=== PATIENT | female | born 1955 | race Caucasian/White ===

== ENCOUNTER → 2017-02-28 | Outpatient (CLI) | payer MEDICARE, MEDICAID | END | disposition home or self-care (01) | LOC: PCVCCLINIC 14:32 | PROVIDERS: ATTEND Internal Medicine Cardiovascular Disease | DX: I25.10 Atherosclerotic heart disease of native coronary artery without angina pectoris (principal); I10 Essential (primary) hypertension; E78.00 Pure hypercholesterolemia, unspecified; K21.9 Gastro-esophageal reflux disease without esophagitis; Z79.899 Other long term (current) drug therapy; Z87.891 Personal history of nicotine dependence | CPT/HCPCS: 93005; G0463 ==

== ENCOUNTER → 2017-08-29 | Outpatient (CLI) | payer MEDICARE, OTHER, MEDICAID ==
[~2017-08-29] MED LIST: AMINOPHYLLINE 250 MG/10 ML VIAL.; REGADENOSON 0.4 MG/5 ML DISP.SYRIN. IV
== END | disposition home or self-care (01) ==
LOC: PCVCIMAG 14:40
DX: I25.10 Atherosclerotic heart disease of native coronary artery without angina pectoris (principal); I10 Essential (primary) hypertension; E78.00 Pure hypercholesterolemia, unspecified; K21.9 Gastro-esophageal reflux disease without esophagitis; I21.9 Acute myocardial infarction, unspecified; Z79.82 Long term (current) use of aspirin; Z79.899 Other long term (current) drug therapy; Z87.891 Personal history of nicotine dependence
CPT/HCPCS: 78452; 93017; A9500; G0463; J0280; J2785

== ENCOUNTER → 2018-02-27 | Outpatient (CLI) | payer MEDICARE, OTHER | END | disposition home or self-care (01) | LOC: PCVCCLINIC 13:00 | PROVIDERS: ATTEND Internal Medicine Cardiovascular Disease | DX: I25.10 Atherosclerotic heart disease of native coronary artery without angina pectoris (principal); I10 Essential (primary) hypertension; E78.00 Pure hypercholesterolemia, unspecified; K21.9 Gastro-esophageal reflux disease without esophagitis; R94.31 Abnormal electrocardiogram [ECG] [EKG]; Z88.8 Allergy status to other drugs, medicaments and biological substances; Z79.82 Long term (current) use of aspirin; Z79.899 Other long term (current) drug therapy | CPT/HCPCS: 93005; G0463 ==

== ENCOUNTER → 2018-08-26 | Outpatient (CLI) | payer MEDICARE, OTHER ==
--- NOTE | 2018-08-26 15:06 | PCVCIMAG ---
APPROVED REPORT Study performed: 08/26/2018 14:10:53 EXAM: Comprehensive 2D, Doppler, and color-flow Echocardiogram Patient Location: Echo lab Status: routine BSA: 1.67 HR: 71 bpmBP: 180/110 mmHg Rhythm: NSR Other Information Study Quality: Adequate Risk Factors: Cardiac Risk Factors: HTN, Hyperlipidemia Indications CAD Myocardial infarction. Multiple Sclerosis. 2D Dimensions IVSd: 8.35 (7-11mm)LVOT Diam: 20.17 (18-24mm) LVDd: 41.77 mm PWd: 8.72 (7-11mm)Ascending Ao: 27.49 (22-36mm) LVDs: 30.63 (25-40mm) Left Atrium: 35.94 (27-40mm) Aortic Root: 31.29 mm LV Single Plane 4CH: 57.17 % LV Single Plane 2CH: 63.14 % Biplane EF: 59.2 % Volumes Left Atrial Volume (Systole) Single Plane 4CH: 28.15 mLSingle Plane 2CH: 30.00 mL LA ESV Index: 17.00 mL/m2 Aortic Valve AoV Peak Rubens.: 1.43 m/s AO Peak Gr.: 8.20 mmHg Mitral Valve E/A Ratio: 0.7 MV Decel. Time: 232.04 ms MV E Max Rubens.: 0.70 m/s MV A Rubens.: 1.04 m/s TDI E/Lateral E': 10.00E/Medial E': 14.00 Medial E' Rubens.: 0.05 m/s Lateral E' Rubens.: 0.07 m/s Pulmonary Valve PV Peak Gr.: 4.32 mmHg Pulmonary Vein P Vein S: 0.63 m/sP Vein A: 0.50 m/s P Vein D: 0.43 m/sP Vein A Dur.: 90.0 msec P Vein S/D Ratio: 1.47 Left Ventricle The left ventricle is normal size. There is normal LV segmental wall motion. There is normal left ventricular wall thickness. Left ventricular systolic function is normal. The left ventricular ejection fraction is within the normal range. LVEF is >55%. Grade I - abnormal relaxation pattern. Right Ventricle The right ventricle is normal size. The right ventricular systolic function is normal. Atria The left atrium size is normal. The right atrium size is normal. Aortic Valve The Aortic valve is sclerotic. No aortic regurgitation is present. There is no aortic valvular stenosis. Mitral Valve The mitral valve is normal in structure. There is no mitral valve regurgitation noted. No evidence of mitral valve stenosis. Tricuspid Valve The tricuspid valve is normal in structure. There is no tricuspid valve regurgitation noted. Pulmonic Valve The pulmonary valve is normal in structure. There is no pulmonic valvular regurgitation. Great Vessels The aortic root is normal in size. IVC is normal in size and collapses >50% with inspiration. Pericardium There is no pericardial effusion. <Conclusion> The left ventricle is normal size. There is normal left ventricular wall thickness. Left ventricular systolic function is normal. Grade I - abnormal relaxation pattern. The right ventricle is normal size. The left atrium size is normal. The right atrium size is normal. The Aortic valve is sclerotic. The mitral valve is normal in structure. There is no tricuspid valve regurgitation noted.
== END | disposition home or self-care (01) ==
LOC: PCVCIMAG 13:30
PROVIDERS: ATTEND Internal Medicine Cardiovascular Disease
DX: I25.10 Atherosclerotic heart disease of native coronary artery without angina pectoris (principal); I10 Essential (primary) hypertension; E78.00 Pure hypercholesterolemia, unspecified; K21.9 Gastro-esophageal reflux disease without esophagitis; I35.8 Other nonrheumatic aortic valve disorders; G35 Multiple sclerosis; I21.9 Acute myocardial infarction, unspecified; Z79.82 Long term (current) use of aspirin; Z87.891 Personal history of nicotine dependence
CPT/HCPCS: 36415; 93005; 93306; G0463

== ENCOUNTER → 2019-02-24 | Outpatient (CLI) | payer MEDICARE, OTHER | END | disposition home or self-care (01) | LOC: PCVCCLINIC 11:30 | PROVIDERS: ATTEND Internal Medicine Cardiovascular Disease | DX: I25.10 Atherosclerotic heart disease of native coronary artery without angina pectoris (principal); I10 Essential (primary) hypertension; E78.00 Pure hypercholesterolemia, unspecified; K21.9 Gastro-esophageal reflux disease without esophagitis; E78.5 Hyperlipidemia, unspecified; Z79.82 Long term (current) use of aspirin; Z79.899 Other long term (current) drug therapy; Z87.891 Personal history of nicotine dependence; Z88.8 Allergy status to other drugs, medicaments and biological substances | CPT/HCPCS: 36415; 93005; G0463 ==